=== PATIENT | female | born 1950 | race Caucasian/White ===

== ENCOUNTER 2017-05-31 23:14 | Emergency (ER) | payer OTHER ==
[2017-06-01 03:39] VITALS: BP 150/69
== END 2017-06-01 03:39 | disposition home or self-care (01) ==
LOC: ED 23:14
DX: H10.212 Acute toxic conjunctivitis, left eye (principal); I10 Essential (primary) hypertension; Z88.0 Allergy status to penicillin; Z88.5 Allergy status to narcotic agent; Z88.6 Allergy status to analgesic agent; Z88.8 Allergy status to other drugs, medicaments and biological substances; Z95.5 Presence of coronary angioplasty implant and graft; Z86.79 Personal history of other diseases of the circulatory system; T50.995A Adverse effect of other drugs, medicaments and biological substances, initial encounter; Y92.89 Other specified places as the place of occurrence of the external cause
CPT/HCPCS: J2060; J7030; V2632

== ENCOUNTER 2019-06-19 00:53 | Inpatient (IN) | payer BC ==
[~2019-06-19] VITALS: Ht 165.1 cm; Wt 47.2 kg
[2019-06-19 01:08] VITALS: Ht 165.1 cm; Wt 47.2 kg
[2019-06-19] MEDS ORDERED: CLOPIDOGREL75 M1 PO (01:15)
[2019-06-19] MEDS ORDERED: CARVEDILOL6.25 M1 PO (01:15)
[2019-06-19] MEDS ORDERED: PANTOPRAZOLE SO40 M1 PO (01:15)
[2019-06-19] MEDS ORDERED: NOR10 PO (01:15)
[2019-06-19] MEDS ORDERED: PAXIL10 MG PO (01:16)
[2019-06-19 01:50] LABS: BASOPHIL % 0.5 % (0-2); PLATELET COUNT 268 x10^3mcL (130-400); RED CELL DISTRIBUTION WIDTH 13.5 % (11.5-14.5)
[2019-06-19 02:46] LABS: CALCIUM 8.5 mg/dL (8.5-10.1); CARBON DIOXIDE 24.2 mmol/L (21-32); CHLORIDE SERUM 102 mmol/L (98-107); CREATININE SERUM 0.7 mg/dL (0.6-1.0); GFR1 > 60 mL/min; GLUCOSE SERUM 292 mg/dL (74-106); POTASSIUM SERUM 3.7 mmol/L (3.5-5.1); SODIUM SERUM 138 mmol/L (136-145)
[2019-06-19 02:51] LABS: ALBUMIN 3.7 g/dL (3.4-5.0); ALKALINE PHOSPHATASE 104 U/L (46-116); ALT/SGPT 22 U/L (14-59); AST/SGOT 19 U/L (15-37); BILIRUBIN TOTAL 0.55 mg/dL (0.20-1.00)
[2019-06-19] MEDS ORDERED: FLUVASTATIN40 MG PO (08:08)
[2019-06-19 08:14] VITALS: BP 137/60
[2019-06-19 16:39] VITALS: BP 129/51
[2019-06-19 19:53] VITALS: BP 129/51
[2019-06-19 21:00] VITALS: BP 148/51
== END 2019-06-19 22:08 | disposition short-term general hospital (02) | DRG 303 ==
LOC: ED 00:53 → DU 04:04
PROVIDERS: Emergency Medicine; ADMIT Internal Medicine Pulmonary Disease
DX: I25.110 Atherosclerotic heart disease of native coronary artery with unstable angina pectoris (principal); I11.9 Hypertensive heart disease without heart failure; E78.5 Hyperlipidemia, unspecified; Z95.5 Presence of coronary angioplasty implant and graft; Z68.33 Body mass index [BMI] 33.0-33.9, adult
CPT/HCPCS: 83880; G0378; Q0092